=== PATIENT | female | born 1945 | race Caucasian/White ===

== ENCOUNTER 2016-12-22 09:01 | Emergency (ER) | payer OTHER ==
--- NOTE | 2016-12-22 11:05 | DIAGNOSTIC IMAGING REPORT ---
PROCEDURE: XR CLAVICLE - LEFT INDICATION: TRAUMA/INJURY TECHNIQUE: Two views left clavicle COMPARISON: None. FINDINGS: Horizontal oblique, mildly comminuted fracture through the mid shaft of the left clavicle. Fracture fragments are overriding by about 4.4 cm. The AC and CC intervals are still normal. Sternoclavicular articulation and grossly normal position. Visible ribs and underlying lung are normal. IMPRESSION: 1. Midshaft clavicle fracture with foreshortening and overlap of fracture fragments by about 4.4 cm.
--- NOTE | 2016-12-22 11:13 | DIAGNOSTIC IMAGING REPORT ---
PROCEDURE: XR RIBS UNILAT W/PA CHEST-LT INDICATION: TRAUMA/INJURY TECHNIQUE: Two views of the left ribs with single PA view chest. COMPARISON: None. FINDINGS: LEFT RIBS: Nondisplaced left posterior fifth rib fracture. Mildly displaced fracture left six lateral rib. No suspicious rib lesions. CHEST: Normal cardiomediastinal contour and central vessels. Slight thickening of the lateral left pleura. No consolidations, significant effusions, or pneumothorax. Left clavicle fracture as described. Other osseous structures are intact. IMPRESSION: 1. Left fifth and sixth rib fractures. 2. Left clavicle fracture. 3. Minor left pleural thickening without pneumothorax or significant effusion.
--- NOTE | 2016-12-22 11:30 | ED CLINICAL REPORT ---
Clinical Report - Physicians/Mid Levels [facility] [address] [place] [address] 12/22/2016 9:06 Patient: ALEE WARREN Time Seen: 923; initial patient contact. Arrived- By private vehicle. Historian- patient. HISTORY OF PRESENT ILLNESS Chief Complaint: Injury to left clavicle. The injury happened yesterday. (neighbor's house). ( gravel hill about 3 - 5 ft). Fell. Patient is experiencing moderate pain. Patient denies injury to the head or neck. Patient also notes other injury (Left lateral chest wall). REVIEW OF SYSTEMS No tingling, numbness, suspected foreign body or skin laceration. All systems otherwise negative, except as recorded above. PAST HISTORY See nurses notes. Tetanus immunization status is up-to-date. Additional Surgeries: no known surgeries. Medications: DULoxetine HCl Oral. Losartan Potassium-HCTZ Oral. Atorvastatin Calcium Oral. Ibuprofen Oral. Allergies: No Known Drug Allergy. SOCIAL HISTORY Never smoker. Occasional alcohol use. No drug use. No recent travel. Is a local resident. ADDITIONAL NOTES The nursing notes have been reviewed. PHYSICAL EXAM Vital Signs: 12/22/2016 09:13 BP: 180/75. HR: 83. RR: 18. O2 saturation: 99%. Temp: 97.9 F. Blood pressure normal. Oxygen saturation normal. Appearance: Alert. Oriented X3. No acute distress. Head: Head atraumatic. Eyes: Pupils equal, round and reactive to light. Eyes normal inspection. ENT: Ears normal. Nose normal. Pharynx normal. Neck: Normal inspection. Neck supple. No decreased ROM or muscle spasm in the neck. No pain with movement of head/neck. C-spine non-tender. No vertebral tenderness. CVS: Normal heart rate and rhythm. Heart sounds normal. Pulses normal. Respiratory: No respiratory distress. Breath sounds normal. Chest nontender. No rales, rhonchi or wheezes. Abdomen: No visible injury. Soft and nontender. Bowel sounds normal. Back: Normal inspection. No tenderness. ROM normal. Skin: Skin intact. Skin warm and dry. Normal skin color. Normal skin turgor. Extremities: Left clavicle area: ecchymosis, moderate tenderness and swelling and mild deformity. No laceration. Left shoulder. No erythema, tenderness, swelling, laceration or abrasion. No ecchymosis, puncture wound or deformity. No extremity tenderness in other areas. Extremities otherwise negative. Neuro, Vascular and Tendons: Sensation intact. Motor intact. Vascular status intact. Tendon function intact. Tendon visualized, uninjured. Neuro: No motor deficit. No sensory deficit. LABS, X-RAYS, AND EKG Lt Clavicle X-ray: (PROCEDURE: XR CLAVICLE - LEFT INDICATION: TRAUMA/INJURY TECHNIQUE: Two views left clavicle COMPARISON: None. FINDINGS: Horizontal oblique, mildly comminuted fracture through the mid shaft of the left clavicle. Fracture fragments are overriding by about 4.4 cm. The AC and CC intervals are still normal. Sternoclavicular articulation and grossly normal position. Visible ribs and underlying lung are normal. IMPRESSION: 1. Midshaft clavicle fracture with foreshortening and overlap of fracture fragments by about 4.4 cm.). The X-rays were independently viewed by me and interpreted by the radiologist. The X-rays were discussed with the radiologist (via pacs). PROGRESS AND PROCEDURES Course of Care: the patient is a 8-year-old female presenting for evaluation of left clavicular pain following a fall down a gravel embankment. Patient without any loss of consciousness or signs of significant head injury. Did not feel CT scan of the head is indicated at this time based on patient's presentation and symptoms as well as examination. Patient does have a significant fracture possibility of the left clavicle. Patient also been evaluated with rib films as she is reporting some tenderness to the left lateralrib area. Patient is agreeable to the treatment and plan. Pain medication has been offered initially. Patient currently is declining offers of pain medication. The patient's workup was remarkable for the findings above. Patient with displaced clavicle fracture. There is shortening of approximately 4.4 cm. Because of the significant shortening, orthopedic surgery will be consulted. Orthopedic surgery recommended follow up in clinic in approximately 10-14 days. No further recommendations made. patient was informed of possible risk of nonunion and need for surgery in the future however will need time to tell if this is necessary. Conservative management with pain medication sling indicated at this time only. Discussed with the patient workup. An emergency department including diagnosis, home care, follow-up, and return precautions. All questions have been answered. The patient expressed understanding of these instructions and was agreeable to them. CLINICAL IMPRESSION 12/22/2016 10:24 BP: 153/70. HR: 72. RR: 18. O2 saturation: 97%. Oxygen saturation normal. Displaced left clavicle shaft fracture (acute closed). Essential hypertension. Single contusion. (left chest wall). INSTRUCTIONS Warnings: GENERAL WARNINGS: Return or contact your physician immediately if your condition worsens or changes unexpectedly, if not improving as expected, or if other problems arise. Specifically return if pain, vomiting, bleeding, breathing difficulty or fever. Your Current Medications: CONTINUE TAKING THE FOLLOWING MEDICATIONS: Atorvastatin Calcium Oral. DULoxetine HCl Oral. Ibuprofen Oral. Losartan Potassium-HCTZ Oral. Prescription Medications: [place] 5 mg / 325 mg tablets: take 1 orally every 6 hours as needed for pain. Dispense thirty (30). No refill. Substitution is permissible. Follow-up: Return to the emergency department as needed. Follow up with your doctor in three days. Reason for referral: recheck today's concerns. Summary of care provided to patient via paper. Screening today revealed the patient's blood pressure to be in the normal range. The patient should follow up with a primary care provider for blood pressure management. Understanding of the discharge instructions verbalized by patient. [facility] [address] [facility] [address] Follow up. Reason for referral: recheck today's concerns in 10 - 14 days. Summary of care provided to patient via paper. (Electronically signed by Fernando Mcleod Dr. 12/22/2016 12:22)
--- NOTE | 2016-12-22 11:30 | ED ORDER SUMMARY ---
..... Patient: ALEE WARREN OrderSheet [facility] VisitID: [id number] [place] [address] 71y, F Registration Date/Time: 12/22/2016 ORDER SHEET Weight: 68.0 kg (stated) Allergies: No Known Drug Allergy GENERAL ORDERS: Clavicle Left Urgent (09:30 12/22/2016 [address] Bravo) (Ack 9:32 RIKoerosalindaner) (10:09 RIKoerner) Ribs Unilat w PA Chest Left Urgent (09:30 12/22/2016 [address] Bravo) (Ack 9:32 Arely) (10:09 Josettener) Ice (09:30 12/22/2016 [address] Bravo) (9:31 PWeiler ER Tech1) Sling - arm (left) (11:27 12/22/2016 [address] Bravo) (Ack 11:36 PWeiler ER Tech1) (12:02 MWinterdany R.N.) MEDICATION ORDERS: Hydrocodone-APAP PO 5/325 mg (NOW, HIGH ALERT MEDICATION) (10:30 12/22/2016 Lane Bravo) (10:35 LWhalpark R.N.) IV FLUIDS: ORDER SHEET NOTES: [Electronically signed by Scooby Townsend R.N. (12:11 12/22/2016)] [Electronically signed by Fernando Mcleod Dr. (12:22 12/22/2016)] [Electronically locked/signed by Scooby Townsend R.N. (12:11 12/22/2016)]
--- NOTE | 2016-12-22 11:30 | ED NURSING NOTES ---
Clinical Report - Nurses [facility] [address] [place] [address] 12/22/2016 9:06 [id number] TRI[facility] Triage time 09:13 Dec 22 2016. Acuity: LEVEL 3. Chief Complaint: INJURY TO THE LEFT SHOULDER. ELIDA COMA SCORE: Elida Coma Scale: 15- eyes open spontaneously (4); best verbal response- oriented x 4 (5); best motor response- obeys commands (6). --09:19 Scooby Townsend R.N. 09:13 12/22/16. BP: 180/75. HR: 83. RR: 18. O2 saturation: 99%. Temp: 97.9 F. Pain level now 8/10. --09:19 Scooby Townsend R.N. Weight: 68 kg stated. Height/Length: 63 inches Per Patient. BMI: 26.6. --09:15 Scooby Townsend R.N. Medications Ibuprofen Oral. --09:16 Scooby Townsend R.N. Atorvastatin Calcium Oral. --09:17 Scooby Townsend R.N. Losartan Potassium-HCTZ Oral. --09:17 Scooby Townsend R.N. DULoxetine HCl Oral. --09:18 Scooby Townsend R.N. Allergies No Known Drug Allergy. --09:17 Scooby Townsend R.N. History Arrived by private vehicle. Historian: patient. Accompanied by family. This occurred last night. Occurred at home. Mechanism of injury: fell. ( Slipped on a jose area and slid 3 feet down an embankment and landed on a amaya on her left side.). She has had neck pain. No weakness or numbness. PAST MEDICAL HX: Hypertension. The patient is post-menopausal. SOCIAL HX: Never smoker. Regular alcohol use; consumes two glasses of wine weekly. No drug use. SELF HARM ASSESSMENT: A self harm assessment was performed. The patient answered "no" to the question "Have you recently felt down, depressed, or hopeless?" and "Do you have thoughts of harming or killing yourself?". FALL RISK ASSESSMENT: Fall risk assessment completed. No fall risk identified. NUTRITIONAL RISK ASSESSMENT: The nutritional risk assessment revealed no deficiencies. FUNCTIONAL ASSESSMENT: Functional assessment: no impairments noted. LEARNING NEEDS ASSESSMENT: The learning needs assessment revealed no barriers. ABUSE ASSESSMENT: Abuse assessment: (yes) The patient was asked "Do you feel safe in your home?". SKIN INTEGRITY ASSESSMENT: Skin integrity risk assessment completed. No skin integrity risk identified. --09:19 Scooby Townsend R.N. PROBLEMS: High blood pressure . --:18 Scooby Townsend R.N. ADDITIONAL SURGERIES: no known surgeries. Interventions ID band on patient. --:19 Scooby Townsend R.N. PHYSICAL ASSESSMENT Ambulatory to room. GENERAL / NEURO / PSYCH: Oriented X 4. Appears in pain and anxious. EXTREMITIES: Left clavicle area: tenderness, swelling and erythema. Capillary refill is less than 2 seconds in the extremities. Extremity pulses are within normal limits. Extremities exhibit normal ROM. Neuro-vascular status intact to the extremity. Left shoulder: swelling and erythema. SKIN: Skin intact. Skin is warm and dry. --09:22 Scooby Townsend R.N. NURSING PROGRESS NOTES The initial plan of care for this patient includes an assessment with efforts to address patient positioning, appropriate ambient lighting and comfortable environmental temperature; impairment of the musculoskeletal system. Cold pack applied to neck and the left clavicle and left shoulder. Extremity elevated. Patient gowned. Call light placed in reach. Side rails up x 1. Bed placed in lowest position. Brakes of bed on. --09:23 Scooby Townsend R.N. Cold pack applied to the left clavicle. --09:31 Enrique Norwood, JAN Tech1 10:24 12/22/16. BP: 153/70. HR: 72. RR: 18. O2 saturation: 97%. --10:25 Scooby Townsend R.N. 10:35 12/22/2016 Hydrocodone-APAP (Hydrocodone-Acetaminophen) PO 5/325 mg Tablets 1 tab given. Allergies verified, confirmed 5 rights and sedative warning given to the patient. --10:35 Scooby Townsend R.N. Sling applied to left arm by photo lab technician; distal pulses intact, sensation intact and motor function within normal limits. --11:51 Enrique Norwood, JAN Tech1. DISPOSITION / DISCHARGE Departure time: 12:Dec 22 2016. Condition at departure: improved. No learning barriers present. Discharge instructions provided and reviewed with the patient and spouse. Reviewed warnings. Reviewed medication(s). Treatments reviewed. Reviewed referrals. Follow up contact number. Patient verbalized understanding. Written instructions provided in [place]. The patient was discharged home and accompanied by spouse. She left the Emergency Department ambulatory and via private vehicle. Spouse driving. --12:09 Scooby Townsend R.N. 12:09 12/22/16. BP: 152/76. HR: 82. RR: 18. O2 saturation: 98%. Pain level now: 09/06. --12:09 Scooby Townsend R.N. 12:10 12/22/16. Temp: 98.1 F. --12:10 Scooby Townsend R.N. Locked/Released at 12/22/2016 12:11 by Scooby Townsend R.N.
--- NOTE | 2016-12-22 11:30 | ED NURSING NOTES ---
Clinical Report - Nurses [facility] [address] [place] [address] 12/22/2016 9:06 [id number] Triage time 09:13 Dec 22 2016. Acuity: LEVEL 3. Chief Complaint: INJURY TO THE LEFT SHOULDER. ELIDA COMA SCORE: Elida Coma Scale: 15- eyes open spontaneously (4); best verbal response- oriented x 4 (5); best motor response- obeys commands (6). --09:19 Scooby Townsend R.N. 09:13 12/22/16. BP: 180/75. HR: 83. RR: 18. O2 saturation: 99%. Temp: 97.9 F. Pain level now 8/10. --09:19 Scooby Townsend R.N. Weight: 68 kg stated. Height/Length: 63 inches Per Patient. BMI: 26.6. --09:15 Scooby Townsend R.N. Medications Ibuprofen Oral. --09:16 Scooby Townsend R.N. Atorvastatin Calcium Oral. --09:17 Scooby Townsend R.N. Losartan Potassium-HCTZ Oral. --09:17 Scooby Townsend R.N. DULoxetine HCl Oral. --09:18 Scooby Townsend R.N. Allergies No Known Drug Allergy. --09:17 Scooby Townsend R.N. History Arrived by private vehicle. Historian: patient. Accompanied by family. This occurred last night. Occurred at home. Mechanism of injury: fell. ( Slipped on a jose area and slid 3 feet down an embankment and landed on a amaya on her left side.). She has had neck pain. No weakness or numbness. PAST MEDICAL HX: Hypertension. The patient is post-menopausal. SOCIAL HX: Never smoker. Regular alcohol use; consumes two glasses of wine weekly. No drug use. SELF HARM ASSESSMENT: A self harm assessment was performed. The patient answered "no" to the question "Have you recently felt down, depressed, or hopeless?" and "Do you have thoughts of harming or killing yourself?". FALL RISK ASSESSMENT: Fall risk assessment completed. No fall risk identified. NUTRITIONAL RISK ASSESSMENT: The nutritional risk assessment revealed no deficiencies. FUNCTIONAL ASSESSMENT: Functional assessment: no impairments noted. LEARNING NEEDS ASSESSMENT: The learning needs assessment revealed no barriers. ABUSE ASSESSMENT: Abuse assessment: (yes) The patient was asked "Do you feel safe in your home?". SKIN INTEGRITY ASSESSMENT: Skin integrity risk assessment completed. No skin integrity risk identified. --09:19 Scooby Townsend R.N. PROBLEMS: High blood pressure . --:18 Socoby Townsend R.N. ADDITIONAL SURGERIES: no known surgeries. Interventions ID band on patient. --:19 Scooby Townsend R.N. PHYSICAL ASSESSMENT Ambulatory to room. GENERAL / NEURO / PSYCH: Oriented X 4. Appears in pain and anxious. EXTREMITIES: Left clavicle area: tenderness, swelling and erythema. Capillary refill is less than 2 seconds in the extremities. Extremity pulses are within normal limits. Extremities exhibit normal ROM. Neuro-vascular status intact to the extremity. Left shoulder: swelling and erythema. SKIN: Skin intact. Skin is warm and dry. --09:22 Scooby Townsend R.N. NURSING PROGRESS NOTES The initial plan of care for this patient includes an assessment with efforts to address patient positioning, appropriate ambient lighting and comfortable environmental temperature; impairment of the musculoskeletal system. Cold pack applied to neck and the left clavicle and left shoulder. Extremity elevated. Patient gowned. Call light placed in reach. Side rails up x 1. Bed placed in lowest position. Brakes of bed on. --09:23 Scooby Townsend R.N. Cold pack applied to the left clavicle. --09:31 Enrique Norwood, JAN Tech1 10:24 12/22/16. BP: 153/70. HR: 72. RR: 18. O2 saturation: 97%. --10:25 Scooby Townsend R.N. 10:35 12/22/2016 Hydrocodone-APAP (Hydrocodone-Acetaminophen) PO 5/325 mg Tablets 1 tab given. Allergies verified, confirmed 5 rights and sedative warning given to the patient. --10:35 Scooby Townsend R.N. Sling applied to left arm by retail maintenance technician; distal pulses intact, sensation intact and motor function within normal limits. --11:51 Enrique Norwood, JAN Tech1. DISPOSITION / DISCHARGE Departure time: 12:Dec 22 2016. Condition at departure: improved. No learning barriers present. Discharge instructions provided and reviewed with the patient and spouse. Reviewed warnings. Reviewed medication(s). Treatments reviewed. Reviewed referrals. Follow up contact number. Patient verbalized understanding. Written instructions provided in [place]. The patient was discharged home and accompanied by spouse. She left the Emergency Department ambulatory and via private vehicle. Spouse driving. --12:09 Scooby Townsend R.N. 12:09 12/22/16. BP: 152/76. HR: 82. RR: 18. O2 saturation: 98%. Pain level now: 09/06. --12:09 Scooby Townsend R.N. 12:10 12/22/16. Temp: 98.1 F. --12:10 Scooby Townsend R.N. Locked/Released at 12/22/2016 12:11 by Scooby Townsend R.N.
--- NOTE | 2016-12-22 11:30 | ED ORDER SUMMARY ---
..... Patient: ALEE WARREN OrderSheet [facility] VisitID: [id number] [place] [address] 71y, F Registration Date/Time: 12/22/2016 ORDER SHEET Weight: 68.0 kg (stated) Allergies: No Known Drug Allergy GENERAL ORDERS: Clavicle Left Urgent (09:30 12/22/2016 [address] Bravo) (Ack 9:32 RIKoerosalindaner) (10:09 RIKoerner) Ribs Unilat w PA Chest Left Urgent (09:30 12/22/2016 [address]) (Ack 9:32 Arely) (10:09 Josettener) Ice (09:30 12/22/2016 [address]ravo) (9:31 PWeiler ER Tech1) Sling - arm (left) (11:27 12/22/2016 [address]) (Ack 11:36 PWeiler ER Tech1) (12:02 MWinterdany R.N.) MEDICATION ORDERS: Hydrocodone-APAP PO 5/325 mg (NOW, HIGH ALERT MEDICATION) (10:30 12/22/2016 [address]) (10:35 LWhalpark R.N.) IV FLUIDS: ORDER SHEET NOTES: [Electronically signed by Scooby Townsend R.N. (12:11 12/22/2016)] [Electronically signed by Fernando Mcleod Dr. (12:22 12/22/2016)] [Electronically locked/signed by Scooby Townsend R.N. (12:11 12/22/2016)]
--- NOTE | 2016-12-22 12:22 | ED MED RECONCILIATION SUMMARY ---
Patient: ALEE WARREN Medication Reconciliation Report [facility] VisitID: [id number] [address] [place] [address] 71y, F Registration Date/Time: 12/22/2016 Weight: 68.0 kg Height/Length: 63 in. BMI: 26.6 ALLERGIES: No Known Drug Allergy The patient's Home Medications are listed below: CONTINUE TAKING THE FOLLOWING MEDICATIONS: Atorvastatin Calcium Oral DULoxetine HCl Oral Ibuprofen Oral Losartan Potassium-HCTZ Oral The source(s) of the original Home Medication information: Not obtained. The following Medications were given to the patient in the Emergency Department: Hydrocodone-APAP [PO] PO 1 tab, administered: 12/22/2016 10:35:00 AM The following Medications were prescribed to the patient: [place] 5 mg / 325 mg tablets: take 1 orally every 6 hours as needed for pain. Dispense thirty (30). No refill. Substitution is permissible. -- Fernando Mcleod Dr.
--- NOTE | 2016-12-22 12:22 | ED MED RECONCILIATION SUMMARY ---
Patient: ALEE WARREN Medication Reconciliation Report [facility] VisitID: [id number] [address] [place] [address] 71y, F Registration Date/Time: 12/22/2016 Weight: 68.0 kg Height/Length: 63 in. BMI: 26.6 ALLERGIES: No Known Drug Allergy The patient's Home Medications are listed below: CONTINUE TAKING THE FOLLOWING MEDICATIONS: Atorvastatin Calcium Oral DULoxetine HCl Oral Ibuprofen Oral Losartan Potassium-HCTZ Oral The source(s) of the original Home Medication information: Not obtained. The following Medications were given to the patient in the Emergency Department: Hydrocodone-APAP [PO] PO 1 tab, administered: 12/22/2016 10:35:00 AM The following Medications were prescribed to the patient: [place] 5 mg / 325 mg tablets: take 1 orally every 6 hours as needed for pain. Dispense thirty (30). No refill. Substitution is permissible. -- Fernando Mcleod Dr.
--- NOTE | 2016-12-22 12:22 | ED MAR SUMMARY ---
..... Medication Administration Record [facility] [address] [place] [address] Patient: ALEE WARREN Visit ID: [id number] 71y, F Weight: 68.0 kg Height/Length: 63 in BMI: 26.6 ALLERGIES: No Known Drug Allergy Given 10:35 12/22/2016 Scooby Townsend RQasim Medication Administered: HYDROCODONE-APAP [PO] (HYDROCODONE-ACETAMINOPHEN), Dose: 1 tab 5/325 mg Tablets PO. Medication Ordered: Hydrocodone-APAP PO 5/325 mg (NOW, HIGH ALERT MEDICATION).
--- NOTE | 2016-12-22 12:22 | ED MAR SUMMARY ---
..... Medication Administration Record [address] [place] [address] Patient: ALEE WARREN Visit ID: [id number] 71y, F Weight: 68.0 kg Height/Length: 63 in BMI: 26.6 ALLERGIES: No Known Drug Allergy Given 10:35 12/22/2016 Scooby Townsend RQasim Medication Administered: HYDROCODONE-APAP [PO] (HYDROCODONE-ACETAMINOPHEN), Dose: 1 tab 5/325 mg Tablets PO. Medication Ordered: Hydrocodone-APAP PO 5/325 mg (NOW, HIGH ALERT MEDICATION).
--- NOTE | 2016-12-22 12:22 | ED DISCHARGE INSTRUCTIONS ---
Patient: ALEE WARREN General Instructions [facility] VisitID: [id number] [address] [place] [address] 71y, F Registration Date/Time: 12/22/2016 12/22/2016 10:24 BP: 153/70. HR: 72. RR: 18. O2 saturation: 97%. Oxygen saturation normal. Displaced left clavicle shaft fracture (acute closed). Essential hypertension. Single contusion. (left chest wall). INSTRUCTIONS Warnings: GENERAL WARNINGS: Return or contact your physician immediately if your condition worsens or changes unexpectedly, if not improving as expected, or if other problems arise. Specifically return if pain, vomiting, bleeding, breathing difficulty or fever. Your Current Medications: CONTINUE TAKING THE FOLLOWING MEDICATIONS: Atorvastatin Calcium Oral. DULoxetine HCl Oral. Ibuprofen Oral. Losartan Potassium-HCTZ Oral. Prescription Medications: [place] 5 mg / 325 mg tablets: take 1 orally every 6 hours as needed for pain. Dispense thirty (30). No refill. Substitution is permissible. Follow-up: Return to the emergency department as needed. Follow up with your doctor in three days. Reason for referral: recheck today's concerns. Summary of care provided to patient via paper. Screening today revealed the patient's blood pressure to be in the normal range. The patient should follow up with a primary care provider for blood pressure management. Understanding of the discharge instructions verbalized by patient. Follow-up with: [facility], , [address], [place], [id number] Follow up. Reason for referral: recheck today's concerns in 10 - 14 days. Summary of care provided to patient via paper. ADDITIONAL INFORMATION Chest Contusion Acontusion is a bruise to the skin, muscle or ribs. It may cause pain, tenderness, swelling and a purplish discoloration. Contusions take a few days to a few weeks to heal. Home Care: Rest. You should not be doing any heavy lifting or strenuous exertion, or any activity that causes pain. You may use acetaminophen (Tylenol) or ibuprofen (Motrin, Advil) to control pain, unless another pain medicine was prescribed. [ NOTE: If you have chronic liver or kidney disease or ever had a stomach ulcer or GI bleeding, talk with your doctor before using these medicines.] Follow Up with your doctor during the next week or as directed. Get Prompt Medical Attention if any of the following occur: Shortness of breath Increasing chest pain with breathing Dizziness, weakness or fainting New or worsening of abdominal pain Fever of 100.4F (38C) or higher, or as directed by your healthcare provider Fracture:Clavicle There is a break (fracture) in your collarbone. This will cause swelling, pain and bruising. The first 3-4 weeks will be the most painful because deep breathing, coughing or changing position from sitting to lying down, may cause the broken ends to move slightly. The fracture will heal in about 4-6 weeks. In children this injury will heal by reshaping the bone back to normal. In adults, a noticeable bump in the bone may remain. Treatment is with a sling or shoulder immobilizer (special type of arm sling). This supports your arm and reduces pain. Home Care 1) Apply an ice pack (ice cubes in a plastic bag, wrapped in a towel) over the injured area for 20 minutes every 1-2 hours the first day. Continue with ice packs 3-4 times a day for the next two days, then as needed for the relief of pain and swelling. 2) If a sling or shoulder immobilizer was provided, wear it for comfort. You may remove it for bathing and when you go to sleep. Take your arm out of the sling for a little while each day and move your shoulder to avoid stiffness. 3) No heavy lifting or raising the injured arm overhead until you are pain free. No sports or P.E. for at least four weeks or until cleared by your doctor to do so. 4) You may use acetaminophen (Tylenol) or ibuprofen (Motrin, Advil) to control pain, unless another pain medicine was prescribed. [ NOTE : If you have chronic liver or kidney disease or ever had a stomach ulcer or GI bleeding, talk with your doctor before using these medicines.] Follow Up with your doctor within one week to be sure the bone is healing properly, or as advised by our staff. [NOTE: A radiologist will review any X-rays that were taken. We will notify you of any new findings that may affect your care.] Get Prompt Medical Attention if any of the following occur: -- Increased swelling or large area of bruising over the collar bone -- Fingers become swollen, cold, blue, numb or tingly -- Shortness of breath, dizziness or weakness High Blood Pressure --Established High Blood Pressure (Hypertension) is a chronic disease. The cause is unknown in most cases. It can usually be controlled with lifestyle changes and/or medicines. Symptoms of high blood pressure may include headache, dizziness, visual changes, chest pain and shortness of breath. Sometimes it causes no symptoms at all. However, even if there are no symptoms, untreated high blood pressure increases the risk of heart attack, also known as acute myocardial infarction, or AMI, and stroke. It is a serious health risk and should not be ignored. A normal blood pressure is 120/80 or less. The first (top) number is the "systolic" pressure. The second (bottom) number is the "diastolic" pressure. Hypertension exists when either the top number is 140 or higher, OR the bottom number is 90 or higher on repeated measurements. Home Care: All patients with high blood pressure should do the following to lower their pressure. If you are on medicines, then these methods may reduce or eliminate your need for medicines in the future. Begin a weight loss program if you are overweight. Reduce your salt intake. Avoid high salt foods (olives, pickles, smoked meats, salted potato chips, etc.). Do not add salt to your food at the table. Use only small amounts of salt when cooking. Begin an exercise program. Discuss with your doctor what type of exercise program would be best for you. It doesn't have to be difficult. Even brisk walking for 20 minutes three times a week is a good form of exercise. Avoid medicines which contain heart stimulants. This includes many cold and sinus decongestant pills and sprays as well as diet pills. Check the warnings about hypertension on the label. Stimulants such as amphetamine or cocaine could be lethal for someone with hypertension. Never take these. Limit your caffeine intake or switch to caffeine-free products. Stop smoking. If you are a long-time smoker, this can be hard. Enroll in a stop-smoking program to improve your chance of success. Learning how to handle stress better is an important part of any program to lower blood pressure. Learn about relaxation methods such as meditation, yoga or biofeedback. If medicines were prescribed, take them exactly as directed. Missing doses may cause your blood pressure get out of control. Consider buying an automatic blood pressure machine (available at most pharmacies). Use this to monitor your blood pressure at home and report the results to your doctor. Follow Up: Regular visits to your own physician for blood pressure checks and medicine adjustment is an important part of your care. Make a follow-up appointment as directed by our staff. Get Prompt Medical Attention if any of the following occur: Chest pain or shortness of breath Severe headache Throbbing or rushing sound in the ears Nosebleed Sudden severe abdominal pain Extreme drowsiness, confusion or fainting Dizziness or vertigo (dizziness with spinning sensation) Weakness of an arm or leg or one side of the face Difficulty with speech or vision Hydrocodone Bitartrate, Acetaminophen Oral tablet What is this medicine? ACETAMINOPHEN; HYDROCODONE (a set a JEFFREY jolynn fen; vivian droe KOE done) is a pain reliever. It is used to treat mild to moderate pain. How should I use this medicine? Take this medicine by mouth. Swallow it with a full glass of water. Follow the directions on the prescription label. If the medicine upsets your stomach, take the medicine with food or milk. Do not take more than you are told to take. Talk to your parts chaser regarding the use of this medicine in children. This medicine is not approved for use in children. What side effects may I notice from receiving this medicine? Side effects that you should report to your doctor or health managed care analyst as soon as possible: allergic reactions like skin rash, itching or hives, swelling of the face, lips, or tongue breathing problems confusion feeling faint or lightheaded, falls stomach pain yellowing of the eyes or skin Side effects that usually do not require medical attention (report to your doctor or health managed care analyst if they continue or are bothersome): nausea, vomiting stomach upset What may interact with this medicine? alcohol antihistamines isoniazid medicines for depression, anxiety, or psychotic disturbances medicines for sleep muscle relaxants naltrexone narcotic medicines (opiates) for pain phenobarbital ritonavir tramadol What if I miss a dose? If you miss a dose, take it as soon as you can. If it is almost time for your next dose, take only that dose. Do not take double or extra doses. Where should I keep my medicine? Keep out of the reach of children. This medicine can be abused. Keep your medicine in a safe place to protect it from theft. Do not share this medicine with anyone. Selling or giving away this medicine is dangerous and against the law. Store at room temperature between 15 and 30 degrees C (59 and 86 degrees F). Protect from light. Keep container tightly closed. Throw away any unused medicine after the expiration date. Discard unused medicine and used packaging carefully. Pets and children can be harmed if they find used or lost packages. What should I tell my health care provider before I take this medicine? They need to know if you have any of these conditions: brain tumor Crohn's disease, inflammatory bowel disease, or ulcerative colitis drink more than 3 alcohol-containing drinks per day drug abuse or addiction head injury heart or circulation problems kidney disease or problems going to the bathroom liver disease lung disease, asthma, or breathing problems an unusual or allergic reaction to acetaminophen, hydrocodone, other opioid analgesics, other medicines, foods, dyes, or preservatives or trying to get breast-feeding What should I watch for while using this medicine? Tell your doctor or health managed care analyst if your pain does not go away, if it gets worse, or if you have new or a different type of pain. You may develop tolerance to the medicine. Tolerance means that you will need a higher dose of the medicine for pain relief. Tolerance is normal and is expected if you take the medicine for a long time. Do not suddenly stop taking your medicine because you may develop a severe reaction. Your body becomes used to the medicine. This does NOT mean you are addicted. Addiction is a behavior related to getting and using a drug for a non-medical reason. If you have pain, you have a medical reason to take pain medicine. Your doctor will tell you how much medicine to take. If your doctor wants you to stop the medicine, the dose will be slowly lowered over time to avoid any side effects. You may get drowsy or dizzy when you first start taking the medicine or change doses. Do not drive, use machinery, or do anything that may be dangerous until you know how the medicine affects you. Stand or sit up slowly. There are different types of narcotic medicines (opiates) for pain. If you take more than one type at the same time, you may have more side effects. Give your health care provider a list of all medicines you use. Your doctor will tell you how much medicine to take. Do not take more medicine than directed. Call emergency for help if you have problems breathing. The medicine will cause constipation. Try to have a bowel movement at least every 2 to 3 days. If you do not have a bowel movement for 3 days, call your doctor or health managed care analyst. Too much acetaminophen can be very dangerous. Do not take Tylenol (acetaminophen) or medicines that contain acetaminophen with this medicine. Many non-prescription medicines contain acetaminophen. Always read the labels carefully. You have been given the following additional information: Chest Wall Contusion Fracture, Clavicle Hypertension, Established Hydrocodone Bitartrate, Acetaminophen Oral tablet (Electronically signed by Fernando Mcleod Dr. 12/22/2016 12:22)
== END 2016-12-22 12:05 | disposition home or self-care (01) ==
LOC: ED SRH 09:01
DX: S42.022A Displaced fracture of shaft of left clavicle, initial encounter for closed fracture (principal); S20.212A Contusion of left front wall of thorax, initial encounter; W17.81XA Fall down embankment (hill), initial encounter; Y93.9 Activity, unspecified; Y92.019 Unspecified place in single-family (private) house as the place of occurrence of the external cause; Y99.9 Unspecified external cause status; I10 Essential (primary) hypertension; Z79.1 Long term (current) use of non-steroidal anti-inflammatories (NSAID); Z79.899 Other long term (current) drug therapy